=== PATIENT | male | born 1985 | race Caucasian/White ===

== ENCOUNTER 2022-01-17 16:16 | Emergency (ER) | payer MEDICAID ==
[~2022-01-17] VITALS: Ht 175.3 cm; Wt 72.7 kg
[2022-01-17 16:38] VITALS: BP 128/81
[2022-01-17] MEDS ORDERED: ONDA-104 PO (19:54)
== END 2022-01-17 22:07 | disposition home or self-care (01) ==
LOC: ER 18:00
DX: U07.1 COVID-19 (principal); Z88.5 Allergy status to narcotic agent
CPT/HCPCS: 87635; 99283; C9803